=== PATIENT | female | born 1930 | race Two or more races ===

== ENCOUNTER 2018-02-03 10:42 | Emergency (ER) | payer OTHER ==
[~2018-02-03] VITALS: Ht 165.1 cm; Wt 54.4 kg
[~2018-02-03 10:42] MED LIST: ATACAND16 MG; AVALIDE 150/12.1 TAB PO; AVAPRO300 MG PO; CEFADROXIL500 MG PO; COMBIGAN EYE DRO5 ML; FAMOTIDINE20 MG PO; GABAPENTIN600 MG; GLUCOPHAGE XR500 MG; HYDROCHLOROTH12.5 M1 PO; Hematron LIQ. PO; ISORDIL10 MG PO; LACTULOSE20 GM/30 M PO; LEVAQUIN750 MG PO; LIPITOR20 MG; LOPRESSOR25 MG PO; LYRICA50 MG PO; MIRALAX12 EA PO; PRILOSEC20 MG PO
[2018-02-03] MEDS ORDERED: CARVEDILOL3.125 MG (11:14)
[2018-02-03] MEDS ORDERED: ISOSORBIDE DINI10 MG (11:16)
[2018-02-03] MEDS ORDERED: CITALOPRAM HBR20 MG (11:16)
[2018-02-03] MEDS ORDERED: SIMVASTATIN20 MG (11:17)
[2018-02-03] MEDS ORDERED: PLAVIX75 MG (11:17)
== END 2018-02-03 14:17 | disposition home or self-care (01) ==
LOC: ER 10:42
DX: R53.1 Weakness (principal); R63.0 Anorexia